=== PATIENT | female | born 1990 | race Hispanic/Latino ===

== ENCOUNTER 2017-07-21 13:57 | Emergency (ER) | payer BC ==
[2017-07-21 14:39] VITALS: BMI 32.1
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
[2017-07-21 21:11] VITALS: BP 102/60; PULSE 90; RESP 18; TEMP 97.8; O2SAT 96
== END 2017-07-21 17:10 | disposition home or self-care (01) ==
LOC: H.EROB2 13:57 → H.EROB 14:31 → H.EROB2 17:10
DX: O26.93 Pregnancy related conditions, unspecified, third trimester (principal); R10.2 Pelvic and perineal pain; Z3A.29 29 weeks gestation of pregnancy

== ENCOUNTER 2018-04-21 17:04 | Emergency (ER) | payer OTHER, BC ==
[2018-04-21 17:05] VITALS: BMI 32.1
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
== END 2018-04-21 18:35 | disposition home or self-care (01) ==
LOC: H.ER 17:04
DX: S06.0X0A Concussion without loss of consciousness, initial encounter (principal); V43.52XA Car driver injured in collision with other type car in traffic accident, initial encounter; Y92.410 Unspecified street and highway as the place of occurrence of the external cause; Z88.1 Allergy status to other antibiotic agents